=== PATIENT | male | born 1980 | race Caucasian/White ===

== ENCOUNTER 2018-08-16 15:07 | Emergency (ER) | payer SELFPAY ==
[~2018-08-16] VITALS: Ht 190.5 cm; Wt 136.1 kg
[2018-08-16 15:18] VITALS: BP 169/103
[2018-08-16] MEDS ORDERED: IBUP-1060 PO (15:59)
[2018-08-16] MEDS ORDERED: HYDR-3164 PO (15:59)
[2018-08-16] MEDS ORDERED: AMOX500C PO (15:59)
--- NOTE | 2018-08-16 15:59 | PHYS DOC ---
Past Medical History Past Medical History: Asthma Past Surgical History: No Surgical History Additional Information: 0.25 PPD Alcohol Use: None Drug Use: None Adult General Chief Complaint Chief Complaint: DENTAL PROBLEM HPI HPI Patient is a 38 year old M with R upper dental fracture that started throbbing and causing pain in last few days. He states he came here from work due to the pain increasing and in exam room he is moaning loudly and rocking back and forth on cot. 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 Discussed importance of dentist f/u. Review of Systems Review of Systems Constitutional: Denies fever or chills HENT: Denies nasal congestion or sore throat. Reports dental pain. Respiratory: Denies cough or shortness of breath Cardiovascular: Denies chest pain. GI: Denies abdominal pain, nausea, vomiting, bloody stools or diarrhea Musculoskeletal: Denies back pain or joint pain Integument: Denies rash or skin lesions Neurologic: Denies headache, focal weakness or sensory changes All other systems were reviewed and found to be within normal limits, except as documented in this note. Current Medications Current Medications Current Medications Medications (Trade) Dose Ordered Sig/Merary Start Time Stop Time Status Last Admin Dose Admin Acetaminophen/ Hydrocodone Bitart (Lortab 10/325) 1 tab 1X ONCE 08/16/18 16:15 08/16/18 16:16 DC 08/16/18 16:19 1 TAB Allergies Allergies Allergies Coded Allergies Type Severity Reaction Last Updated Verified No Known Drug Allergies 08/16/18 No Physical Exam Physical Exam Constitutional: Well developed, well nourished, nontoxic. Uncomfortable. HENT: Normocephalic, atraumatic, bilateral external ears normal, oropharynx moist. Fractured upper R tooth that is carious with mild gum edema. Neck: Normal range of motion, no tenderness, supple, no stridor. Cardiovascular:Heart rate regular rhythm, no murmur Lungs & Thorax: Bilateral breath sounds clear to auscultation Abdomen: Bowel sounds normal, soft, no tenderness, no masses, no pulsatile masses. Skin: Warm, dry, no erythema, no rash. Back: No tenderness, no CVA tenderness. Extremities: No tenderness, no cyanosis, no clubbing, ROM intact, no edema. Neurologic: Alert and oriented X 3, normal motor function, normal sensory function, no focal deficits noted. Current Patient Data Vital Signs Vital Signs Date Time Temp Pulse Resp B/P (MAP) Pulse Ox O2 Delivery O2 Flow Rate FiO2 08/16/18 16:19 18 97 Room Air 08/16/18 15:18 98.0 93 169/103 (125) 98.0 EKG EKG [] Radiology/Procedures Radiology/Procedures [] Course & Med Decision Making Course & Med Decision Making Pertinent Labs and Imaging studies reviewed. (See chart for details) Pt hypertensive while in ER but very uncomfortable. Have asked him to recheck blood pressure when he is feeling better and f/u with his PCP. Pt needs close f/u with dentist and explained that this will reoccur without dental intervention. Mouth wash and salt water gargles recommended. Frequent brushing. Dragon Disclaimer Dragon Disclaimer This electronic medical record was generated, in whole or in part, using a voice recognition dictation system. Departure Departure Impression: Primary Impression: Pain, dental Disposition: HOME, SELF-CARE Condition: STABLE Referrals: UNKNOWN PCP NAME (PCP) Patient Instructions: Dental Pain, [id number] Additional Instructions: Salt water or mouth wash gargles. Frequent teeth brushing. You need to see a dentist for follow up. Scripts Hydrocodone/Apap 5-325 (NORCO 5-325 TABLET) 1 Each Tablet 1-2 TAB PO Q4-6HRS, #12 TAB Prov: ALINE HUGHES 08/16/18 Ibuprofen (IBUPROFEN) 800 Mg Tablet 800 MG PO PRN Q6HRS PRN for INFLAMMATION for 5 Days, #20 TAB Prov: ALINE HUGHES 08/16/18 Amoxicillin (AMOXICILLIN) 500 Mg Capsule 2 CAP PO BID, #40 CAP Prov: ALINE HUGHES 08/16/18 ALINE HUGHES Aug 16, 2018 15:59
[2018-08-16] MEDS ORDERED: HYDROcodone/APAP 10/325 1 TAB TABLET PO ONE (16:15)
== END 2018-08-16 16:22 | disposition home or self-care (01) ==
LOC: ER 15:07
DX: S02.5XXA Fracture of tooth (traumatic), initial encounter for closed fracture (principal); J45.909 Unspecified asthma, uncomplicated; F17.200 Nicotine dependence, unspecified, uncomplicated; X58.XXXA Exposure to other specified factors, initial encounter; Y93.89 Activity, other specified; Y92.89 Other specified places as the place of occurrence of the external cause; Y99.8 Other external cause status
CPT/HCPCS: 99284